=== PATIENT | male | born 1990 | race Caucasian/White ===

== ENCOUNTER 2016-05-30 17:00 | Emergency (ER) | payer MEDICAID, OTHER ==
[~2016-05-30] VITALS: Ht 182.9 cm; Wt 78.0 kg
[~2016-05-30 17:00] MED LIST: Z.0.NO CURRENT MEDS
[2016-05-30 17:09] VITALS: BP 111/61; PULSE 76; RESP 16; TEMP 99.2; O2SAT 96
--- NOTE | 2016-05-30 17:33 | PD ---
HPI Chief Complaint: Injury Time Seen by Provider: 17:27 Travel History International Travel<30 days: No Contact w/Intl Traveler<30days: No Traveled to known affect area: No History of Present Illness HPI Patient is a 25-year-old male presenting with left knee pain. It is anterior and medial. Present for 6 weeks off and on. He states he was running 6 weeks ago and somehow the knee bent he feels like the "bones twisted out of place ". He seems indicated the patella moved medially but spontaneously resolved. He borrowed a relatives knee immobilizer which seemed to help. It has been improving until today when he was running and decided to stop and walk backwards at which point the same mechanism happened. Due to time did he fall or have trauma to the knee. He has been able to bear weight but it is painful to do so. He denies instability. He denies radiation of the pain. He denies weakness or paresthesia. He denies fever and edema. He denies any crepitus, clicking/locking. PFSH Past Medical History Medical History: Denies Significant Hx Hx Anticoagulant Therapy: No Diminished Hearing: No Immunizations Current: Yes Tetanus Vaccination: < 5 Years Influenza Vaccination: No Past Surgical History Surgical History: No Previous Surgery Social History Alcohol Use: Yes (OCC) Tobacco Use: No Substance Use: No Allergies-Medications (Allergen,Severity, Reaction): Coded Allergies: No Known Allergies (Verified , 05/30/16) Reported Meds & Prescriptions Reported Meds & Active Scripts Active Diclofenac Sodium DR (Diclofenac Sodium) 50 Mg Tabdr 50 Mg PO BID Review of Systems General / Constitutional: No: Fever Cardiovascular: No: Edema Musculoskeletal: Positive: Other (see the history of present illness) Neurologic: No: Weakness, Focal Abnormalities, Paresthesia, Sensory Disturbance Physical Exam Narrative GENERAL: Well-developed and well-nourished adult male in no acute distress. SKIN: Warm and dry. Good turgor without tenting. HEAD: Normocephalic and atraumatic. EYES: PERRL bilaterally, 5mm. EOMI bilaterally. No injection or icterus present. No proptosis. Lids without edema or erythema. CARDIOVASCULAR: Regular rate and rhythm without murmurs, rubs, clicks or gallops. Dorsalis pedis and posterior tibial pulses 2+ bilaterally. Capillary refill less than 2 seconds distal tip of all toes left foot. No pedal edema. RESPIRATORY: Clear to auscultation bilaterally with symmetrical rise and fall, no distress or use of accessory muscles. MUSCULOSKELETAL: Left knee is grossly unremarkable, no edema or discoloration. Patient has some tenderness with palpation of the anterior medial aspect without specific tibial plateau or tuberosity tenderness. No patellar or fibular head tenderness. Normal range of motion in flexion and extension. There is no crepitus. There is no laxity of the patella. The patella tracks normally with flexion and extension. Negative Marcelo test. Negative varus and valgus test however with valgus stress there is reproduction of his pain. Negative patellar grind and Jacques test of the left knee. The pain with palpation of the left hip and ankle and normal range of motion in same. Patient freely moving all four extremities spontaneously. Extremities without clubbing, cyanosis, or edema. No obvious deformities. NEUROLOGIC: CN II-XII grossly intact. Awake and alert. Strength 5/5 bilateral hip flexion, hip extension, knee flexion, knee extension, plantar and dorsiflexion. Sensation intact to the distal tip of all 5 toes of left foot. Normal speech. PSYCHIATRIC: Appropriate mood and affect; insight and judgment normal. Data Data Last Documented VS Vital Signs Date Time Temp Pulse Resp B/P Pulse Ox O2 Delivery O2 Flow Rate FiO2 05/30/16 17:09 99.2 76 16 111/61 96 Orders Knee, Complete (4vws) (05/30/16 17:26) Crutches (05/30/16 18:56) Splint Or Brace Apply/Monitor (05/30/16 18:56) MDM Medical Decision Making Medical Screen Exam Complete: Yes Emergency Medical Condition: Yes Differential Diagnosis MCL sprain versus knee sprain versus patellar dislocation unlikely versus MCL tear unlikely versus meniscus tear unlikely Narrative Course Patient is a 25-year-old male with history and physical suggestive of an MCL sprain. Has been bothering him chronically for 6 weeks with acute worsening today while running backwards. He is a hard time relating exactly what occurred but the knee is stable and there is no evidence of joint disruption or ligamentous tear. He is neurovascularly intact. Ordered x-ray which shows a small suprapatellar effusion with minimal patellofemoral degenerative changes. Although this does make patellar subluxation more likely given the lack of laxity of the this is most like distal an MCL sprain. Regardless patient will be placed in a knee immobilizer and given crutches and recommend follow-up with orthopedist on Thursday. Prescription given for diclofenac as well.See discharge paperwork for further instructions. The plan was discussed with the patient who acknowledged their understanding and agreement. Reinforced the follow-up with primary care is critically important. Patient instructed on emergent conditions that should prompt return to ED. Diagnosis Primary Impression: Effusion, left knee Additional Impression: Knee MCL sprain Qualified Code: S83.412A - Sprain of medial collateral ligament of left knee, initial encounter Referrals: Leo Hussein MD Patient Instructions: General Instructions, Knee Sprain (ED) Additional Instructions: Take medications as prescribed Apply ice every 1 to 2 hours as needed for pain Avoid maneuvers that aggravate pain Keep knee immobilizer on while being active or using extremity Use crutches when walking to avoid pressure on joint Elevate when at rest Be aware that may take several weeks for sprains to heal fully Follow-up with orthopedist on Thursday Return to the ED for any acute worsening of symptoms Med/Other Pt SpecificInfo: Prescription(s) given Scripts Diclofenac Sodium DR 50 Mg Tabdr50 Mg PO BID #14 TAB Prov:Yosvany Hammond MD 05/30/16 Disposition: 01 DISCHARGE HOME Condition: Stable Jamie Ring III May 30, 2016 17:33
--- NOTE | 2016-05-30 18:48 | RADHPO ---
EXAM DATE/TIME: 05/30/2016 18:07 [facility] COMPARISON: No previous studies available for comparison. INDICATIONS : Left medial knee pain. No known injury. MEDICAL HISTORY : None. SURGICAL HISTORY : None. ENCOUNTER: Initial ACUITY: 1 day PAIN SCORE: 8/10 LOCATION: Left medial knee FINDINGS: A tiny suprapatellar effusion is noted. Minimal degenerative changes are noted involving the patellof emoral joint. There is no acute fracture or dislocation. CONCLUSION: Tiny suprapatellar knee joint effusion. Minimal degenerative changes involving the patellofemoral yessi nt. No acute fracture or dislocation. Adam Morton MD on May 30, 2016 at 18:46 Board Certified Radiologist. This report was verified electronically.
[2016-05-30] MEDS ORDERED: DICL50TA3 PO (18:57)
== END 2016-05-30 19:24 | disposition home or self-care (01) ==
LOC: PHEFT 17:00
DX: M25.462 Effusion, left knee (principal); S83.412A Sprain of medial collateral ligament of left knee, initial encounter
CPT/HCPCS: 73564; 99283; E0113; L1830